=== PATIENT | female | born 1965 | race Caucasian/White ===

== ENCOUNTER 2022-11-24 21:03 | Emergency (ER) | payer BC ==
[2022-11-24] MEDS ORDERED: Lactated Ringers 1,000 ML IV ONE (21:54)
[2022-11-24] MEDS ORDERED: Ondansetron 4 MG/2 ML SDV IVPUSH ONE (23:00)
[2022-11-25] MEDS ORDERED: Ondansetron 4 MG Tab.DIS PO ONE (00:19)
[2022-11-25 00:40] VITALS: BP 120/74; PULSE 81
== END 2022-11-25 00:30 | disposition home or self-care (01) ==
LOC: JD.ED 21:03
DX: H81.10 Benign paroxysmal vertigo, unspecified ear (principal)
CPT/HCPCS: 96361; 96374; 96375; 99283; 99283-25; A9270-GY; J2405; J3360; J7120